=== PATIENT | female | born 1940 | race Caucasian/White ===

== ENCOUNTER 2016-04-14 10:14 | Emergency (ER) | payer OTHER ==
[~2016-04-14] VITALS: Ht 157.5 cm; Wt 90.2 kg
[~2016-04-14 10:14] MED LIST: ANTIVERT25 MG PO; ASPIRIN E.C.81 M1 PO; ASPIRIN325 MG PO; BAYER ADVANCED500 MG PO; BAYER CHEWABLE81 MG PO; CENTRUM COMPLE1 EACH PO; CENTRUM SILVER1 EAC3 PO; CIPRO500 MG PO; COLON HERBA1 CAPSULE PO; FAMOTIDINE20 MG PO; FIBER TABS625 MG PO; FIBERCON625 MG PO; FISH OIL 1,0001 EAC7 PO; FISH OIL OMEGA1 EACH PO; FLAGYL500 MG PO; FLAX OIL1000 MG PO; FLORASTOR250 MG PO; KEFLEX500 MG PO; LEVOTHROID,S0.075 MG PO; LEVOTHROID100 MCG PO; LISINOPRIL5 MG PO; Levothroid,Synthroid PO; MECLIZINE HCL25 MG PO; NAPROSYN500 MG PO; NAPROXEN500 MG PO; NEXIUM20 MG PO; NEXIUM40 MG PO; NOHOMEMEDS; NORVASC5 MG PO; PEPCID20 MG PO; PERCOCET 5/31 TABLET PO; PRAVACHOL40 MG PO; PRAVASTATIN SOD40 MG PO; PRINIVIL5 MG PO; SYNTHROID100 MCG PO; TAMIFLU75 MG PO; TIROSINT75 MCG PO; VANCOCIN HCL125 MG PO; WELCHOL625 MG PO; ZANTAC150 MG PO; ZINC30 MG PO
[2016-04-14 10:17] VITALS: BP 177/92
== END 2016-04-14 12:14 | disposition home or self-care (01) ==
LOC: EME 10:14
DX: N81.10 Cystocele, unspecified (principal); I10 Essential (primary) hypertension; E03.9 Hypothyroidism, unspecified; E78.5 Hyperlipidemia, unspecified
CPT/HCPCS: 99281; 99283

== ENCOUNTER 2016-10-01 17:34 | Emergency (ER) | payer OTHER ==
[~2016-10-01] VITALS: Ht 157.5 cm; Wt 91.7 kg
[2016-10-01] MEDS ORDERED: MOTRIN600 MG PO (20:32)
[2016-10-01] MEDS ORDERED: NORCO 5/3251 TABLET PO (20:32)
[2016-10-01 20:47] VITALS: BP 172/85
== END 2016-10-01 20:48 | disposition home or self-care (01) ==
LOC: EME 17:34
DX: S20.211A Contusion of right front wall of thorax, initial encounter (principal); W18.30XA Fall on same level, unspecified, initial encounter; Y92.480 Sidewalk as the place of occurrence of the external cause; E78.5 Hyperlipidemia, unspecified; I10 Essential (primary) hypertension; K21.9 Gastro-esophageal reflux disease without esophagitis; Z87.442 Personal history of urinary calculi; Z90.49 Acquired absence of other specified parts of digestive tract
CPT/HCPCS: 71020; 99281; 99284

== ENCOUNTER 2016-10-28 17:43 | Emergency (ER) | payer OTHER ==
[~2016-10-28] VITALS: Ht 157.5 cm; Wt 88.8 kg
[~2016-10-28 17:43] MED LIST changes: +MOTRIN600 MG PO; +NORCO 5/3251 TABLET PO
[2016-10-28 18:57] LABS: HEMATOCRIT 43.1 % (36.0-46.0); MCH 30.1 PG (29.0-34.0); MCHC 33.4 G/DL (30.0-36.0); MEAN PLAT.VOLUME 9.7 uM^3 (9.5-12.4); PLATELET COUNT 252 K/uL (156-360); RBC DIS.WIDTH-CV 13.7 % (11.8-14.6); RBC DIS.WIDTH-SD 45.4 % (39-53); RED BLOOD COUNT 4.79 M/uL (3.80-5.20); WHITE BLOOD COUNT 7.4 K/uL (4.1-10.2)
[2016-10-28 19:06] LABS: ADD MIUA? NO; BILIRUBIN NEGATIVE; BLOOD NEGATIVE; COLOR YELLOW ((YELLOW)); GLUCOSE (STRIP) NEGATIVE; KETONES NEGATIVE; LEUKOCYTES NEGATIVE; NITRITE NEGATIVE; PROTEIN (STRIP) NEGATIVE; SPECIFIC GRAVITY 1.014 (1.000-1.030); UCUL ADDED? NO; UROBILINOGEN 0.2 MG/DL (0.2-1.0)
[2016-10-28 19:07] LABS: CHLORIDE 102 mEq/L (99-109); POTASSIUM 4.2 mEq/L (3.7-5.4); SODIUM 134 mEq/L (136-147)
[2016-10-28 19:09] LABS: GLUCOSE 103 mg/dL (70-99)
[2016-10-28 19:11] LABS: ANION GAP 9 MEQ/L (2-14); TOTAL BILIRUBIN 0.7 mg/dL (0.0-1.0)
[2016-10-28 19:13] LABS: ALKALINE PHOSPHATASE 92 IU/L (3-129); GFR ESTIMATE (CALCULATED) > 59 mL/min/
[2016-10-28 19:14] LABS: UREA NITROGEN (BUN) 19 mg/dL (9-23)
[2016-10-28 19:16] LABS: LIPASE 9 U/L (1.0-51.0)
[2016-10-28 19:17] LABS: CREATINE KINASE 48 IU/L (1-294); TOTAL CK 48 IU/L (1-294)
[2016-10-28 19:20] LABS: TROP-I INTERPRETATION NEGATIVE; TROPONIN-I < 0.01 ng/mL (0.0-0.30)
[2016-10-28 19:22] LABS: CK-MB 0.7 ng/mL (0.0-4.9)
[2016-10-28] MEDS ORDERED: MAALOX MAXIMUM355 ML PO (21:09)
[2016-10-28] MEDS ORDERED: PRILOSEC OTC20 MG PO (21:09)
[2016-10-28] MEDS ORDERED: ZOFRAN ODT4 MG PO (21:10)
[2016-10-28 21:35] VITALS: BP 135/80
== END 2016-10-28 21:36 | disposition home or self-care (01) ==
LOC: EME 17:43
PROVIDERS: Emergency Medicine
DX: R10.13 Epigastric pain (principal); Z87.442 Personal history of urinary calculi; K21.9 Gastro-esophageal reflux disease without esophagitis; I10 Essential (primary) hypertension; E78.5 Hyperlipidemia, unspecified; E03.9 Hypothyroidism, unspecified; Z90.49 Acquired absence of other specified parts of digestive tract
CPT/HCPCS: 74177; 80053; 81003; 82550; 82553; 83690; 84484; 85027; 93005; 99281; 99285

== ENCOUNTER 2017-07-13 19:53 | Inpatient (IN) | payer OTHER ==
[~2017-07-13] VITALS: Ht 157.5 cm; Wt 89.3 kg
[~2017-07-13 19:53] MED LIST changes: -FISH OIL 1,0001 EAC7 PO; +LISINOPRIL10 MG PO; -LISINOPRIL5 MG PO; +MAALOX MAXIMUM355 ML PO; +MEGARED OMEGA-1 EAC1 PO; +PRILOSEC OTC20 MG PO; +ZOFRAN ODT4 MG PO
[2017-07-13 20:55] LABS: HEMATOCRIT 39.4 % (36.0-46.0); HEMOGLOBIN 13.6 G/DL (11.9-15.5); MCH 30.8 PG (29.0-34.0); MCHC 34.5 G/DL (30.0-36.0); MCV 89.1 FL (83-99); PLATELET COUNT 328 K/uL (156-360); RBC DIS.WIDTH-CV 12.8 % (11.8-14.6); RBC DIS.WIDTH-SD 42.5 % (39-53); RED BLOOD COUNT 4.42 M/uL (3.80-5.20); WHITE BLOOD COUNT 7.9 K/uL (4.1-10.2)
[2017-07-13 21:17] LABS: ALBUMIN 4.2 g/dL (3.2-4.8); CHLORIDE 100 mEq/L (99-109); POTASSIUM 4.5 mEq/L (3.7-5.4); SODIUM 139 mEq/L (136-147)
[2017-07-13 21:19] LABS: GLUCOSE 128 mg/dL (70-99)
[2017-07-13 21:20] LABS: TOTAL PROTEIN 8.5 g/dL (6.4-8.3)
[2017-07-13 21:21] LABS: TOTAL BILIRUBIN 0.3 mg/dL (0.0-1.0)
[2017-07-13 21:23] LABS: ALKALINE PHOSPHATASE 112 IU/L (3-129); CREATININE 0.8 mg/dL (0.6-1.3); GFR ESTIMATE (CALCULATED) > 59 mL/min/
[2017-07-13 21:24] LABS: UREA NITROGEN (BUN) 10 mg/dL (9-23)
[2017-07-13 21:25] LABS: AST (GOT) 28 IU/L (2-34)
[2017-07-13 21:26] LABS: ALT (GPT) 27 IU/L (3-49)
[2017-07-13 22:29] LABS: TROP-I INTERPRETATION NEGATIVE; TROPONIN-I < 0.01 ng/mL (0.0-0.30)
[2017-07-13 22:57] LABS: LIPASE 19 U/L (1.0-51.0)
[2017-07-13 23:05] LABS: APPEARANCE CLEAR ((CLEAR)); BILIRUBIN NEGATIVE; BLOOD NEGATIVE; COLOR STRAW ((YELLOW)); GLUCOSE (STRIP) NEGATIVE; KETONES NEGATIVE; LEUKOCYTES NEGATIVE; NITRITE NEGATIVE; PROTEIN (STRIP) 30; SPECIFIC GRAVITY 1.006 (1.000-1.030); UCUL ADDED? NO; UROBILINOGEN 0.2 MG/DL (0.2-1.0)
[2017-07-14] MEDS ORDERED: METFORMIN HCL500 M1 PO (00:38)
[2017-07-14 03:24] VITALS: BP 161/74
[2017-07-14 03:25] LABS: C-REACTIVE PROTEIN 21.4 MG/L (0-10)
[2017-07-14 06:38] LABS: HEMATOCRIT 35.8 % (36.0-46.0); HEMOGLOBIN 11.8 G/DL (11.9-15.5); MCV 91.1 FL (83-99); PLATELET COUNT 255 K/uL (156-360); RBC DIS.WIDTH-SD 43.5 % (39-53); RED BLOOD COUNT 3.93 M/uL (3.80-5.20); WHITE BLOOD COUNT 6.8 K/uL (4.1-10.2)
[2017-07-14 07:02] LABS: CHLORIDE 106 MEQ/L (99-109); CREATININE 0.6 MG/DL (0.6-1.3); GFR ESTIMATE (CALCULATED) > 59 mL/min/; GLUCOSE 127 mg/dL (70-99); POTASSIUM 4.5 MEQ/L (3.7-5.4); SODIUM 139 MEQ/L (136-147); UREA NITROGEN (BUN) 9 mg/dL (9-23)
[2017-07-14 07:27] VITALS: BP 132/64
[2017-07-14 12:19] VITALS: BP 153/66
[2017-07-14 16:48] VITALS: BP 135/74
[2017-07-14 17:33] LABS: C DIFF TOXIN NEGATIVE (NEGATIVE)
[2017-07-14 19:42] VITALS: BP 169/78
[2017-07-15 00:08] VITALS: BP 147/80
[2017-07-15 03:38] VITALS: BP 138/82
[2017-07-15 06:42] LABS: HEMOGLOBIN 11.7 G/DL (11.9-15.5); MCH 30.5 PG (29.0-34.0); MCHC 32.5 G/DL (30.0-36.0); MCV 93.8 FL (83-99); PLATELET COUNT 231 K/uL (156-360); RBC DIS.WIDTH-CV 13.3 % (11.8-14.6); RBC DIS.WIDTH-SD 45.6 % (39-53); RED BLOOD COUNT 3.84 M/uL (3.80-5.20); WHITE BLOOD COUNT 4.9 K/uL (4.1-10.2)
[2017-07-15 06:55] LABS: CHLORIDE 107 MEQ/L (99-109); CREATININE 0.7 MG/DL (0.6-1.3); GFR ESTIMATE (CALCULATED) > 59 mL/min/; GLUCOSE 114 mg/dL (70-99); POTASSIUM 4.7 MEQ/L (3.7-5.4); SODIUM 142 MEQ/L (136-147); UREA NITROGEN (BUN) 6 mg/dL (9-23)
[2017-07-15 08:02] VITALS: BP 176/90
[2017-07-15] MEDS ORDERED: CIPRO500 MG PO (08:11)
[2017-07-15] MEDS ORDERED: FLAGYL500 MG PO (08:11)
[2017-07-15 11:43] VITALS: BP 182/87
== END 2017-07-15 15:58 | disposition home or self-care (01) | DRG 392 ==
LOC: EME 19:53 → 2EASTP 07-14 01:56 → EDOF 07-14 01:56 → ENRESERV 07-14 02:09 → 2EASTP 07-14 03:17 → ENPENDDIS 07-15 16:00
PROVIDERS: Hospitalist
DX: K57.32 Diverticulitis of large intestine without perforation or abscess without bleeding (principal); I10 Essential (primary) hypertension; E11.9 Type 2 diabetes mellitus without complications; Z68.36 Body mass index [BMI] 36.0-36.9, adult; E66.9 Obesity, unspecified; E78.5 Hyperlipidemia, unspecified; E03.9 Hypothyroidism, unspecified; K21.9 Gastro-esophageal reflux disease without esophagitis; Z87.442 Personal history of urinary calculi; Z87.11 Personal history of peptic ulcer disease; Z82.49 Family history of ischemic heart disease and other diseases of the circulatory system
CPT/HCPCS: 74177; 80048; 80053; 81003; 82948; 83605; 83690; 84484; 85027; 86140; 87040; 87493; 93005; 99281; 99285; J0744; J1170; J1650; J3010; J7030; J7050; S0028; S0030

== ENCOUNTER 2017-08-26 00:37 | Emergency (ER) | payer OTHER ==
[~2017-08-26] VITALS: Ht 157.5 cm; Wt 88.1 kg
[~2017-08-26 00:37] MED LIST changes: +METFORMIN HCL500 M1 PO
[2017-08-26 01:21] LABS: APPEARANCE CLEAR ((CLEAR)); BILIRUBIN NEGATIVE; BLOOD MODERATE; COLOR YELLOW ((YELLOW)); GLUCOSE (STRIP) NEGATIVE; KETONES NEGATIVE; LEUKOCYTES NEGATIVE; NITRITE NEGATIVE; PROTEIN (STRIP) 30; SPECIFIC GRAVITY 1.014 (1.000-1.030); UROBILINOGEN 0.2 MG/DL (0.2-1.0)
[2017-08-26 01:26] LABS: BACTERIA NONE SEEN /HPF; EPITHELIAL CELLS RARE /HPF; MUCUS NONE SEEN /LPF; RED BLOOD CELLS 0-5 /HPF (0-5); UCUL ADDED? NO; WHITE BLOOD CELLS 0-5 /HPF (0-5)
[2017-08-26 02:54] LABS: BASOPHIL (%) 0.4 % (0-1); BASOPHIL COUNT 0.1 K/uL (0-0.1); EOSINOPHIL (%) 4.5 % (0-5); EOSINOPHIL COUNT 0.5 K/uL (0-0.3); HEMATOCRIT 37.7 % (36.0-46.0); HEMOGLOBIN 12.7 G/DL (11.9-15.5); IMMATURE GRANULOCYTE (%) 0.4 % (0.0-0.7); LYMPHOCYTE (%) 23.4 % (15-42); LYMPHOCYTE COUNT 2.6 K/uL (1.0-2.8); MCH 30.2 PG (29.0-34.0); MCHC 33.7 G/DL (30.0-36.0); MCV 89.8 FL (83-99); MONOCYTE (%) 9.1 % (3-12); NEUTROPHIL (%) 62.2 % (45-76); PLATELET COUNT 243 K/uL (156-360); RBC DIS.WIDTH-CV 13.6 % (11.8-14.6); RBC DIS.WIDTH-SD 44.8 % (39-53); WHITE BLOOD COUNT 11.3 K/uL (4.1-10.2)
[2017-08-26 03:01] LABS: CHLORIDE 104 mEq/L (99-109); POTASSIUM 4.3 mEq/L (3.7-5.4); SODIUM 140 mEq/L (136-147)
[2017-08-26 03:03] LABS: GLUCOSE 136 mg/dL (70-99)
[2017-08-26 03:07] LABS: CREATININE 0.7 mg/dL (0.6-1.3); GFR ESTIMATE (CALCULATED) > 59 mL/min/; UREA NITROGEN (BUN) 14 mg/dL (9-23)
[2017-08-26] MEDS ORDERED: AUGMENTIN875 MG PO (03:31)
[2017-08-26 04:25] VITALS: BP 178/89
== END 2017-08-26 04:26 | disposition home or self-care (01) ==
LOC: EME 00:37
PROVIDERS: Emergency Medicine
DX: K57.32 Diverticulitis of large intestine without perforation or abscess without bleeding (principal); R31.9 Hematuria, unspecified; K76.0 Fatty (change of) liver, not elsewhere classified; I10 Essential (primary) hypertension; E78.5 Hyperlipidemia, unspecified; E03.9 Hypothyroidism, unspecified; E11.9 Type 2 diabetes mellitus without complications; Z79.84 Long term (current) use of oral hypoglycemic drugs; Z87.442 Personal history of urinary calculi; Z90.49 Acquired absence of other specified parts of digestive tract
CPT/HCPCS: 74176; 80048; 81003; 85025; 99281; 99284; J1885

== ENCOUNTER 2017-09-22 22:51 | Emergency (ER) | payer OTHER ==
[~2017-09-22] VITALS: Ht 157.5 cm; Wt 87.4 kg
[~2017-09-22 22:51] MED LIST changes: +AUGMENTIN875 MG PO
[2017-09-22 23:13] LABS: HEMATOCRIT 38.8 % (36.0-46.0); HEMOGLOBIN 13.2 G/DL (11.9-15.5); MCH 30.8 PG (29.0-34.0); MCV 90.7 FL (83-99); PLATELET COUNT 260 K/uL (156-360); RBC DIS.WIDTH-CV 13.5 % (11.8-14.6); RBC DIS.WIDTH-SD 44.6 % (39-53); RED BLOOD COUNT 4.28 M/uL (3.80-5.20); WHITE BLOOD COUNT 9.1 K/uL (4.1-10.2)
[2017-09-22 23:28] LABS: CHLORIDE 106 mEq/L (99-109); POTASSIUM 4.3 mEq/L (3.7-5.4); SODIUM 144 mEq/L (136-147)
[2017-09-22 23:30] LABS: GLUCOSE 100 mg/dL (70-99)
[2017-09-22 23:34] LABS: CREATININE 0.9 mg/dL (0.6-1.3); GFR ESTIMATE (CALCULATED) > 59 mL/min/; TROP-I INTERPRETATION NEGATIVE; TROPONIN-I < 0.01 ng/mL (0.0-0.30)
[2017-09-22 23:35] LABS: UREA NITROGEN (BUN) 18 mg/dL (9-23)
[2017-09-23] MEDS ORDERED: TESSALON PERLE100 MG PO (01:09)
[2017-09-23] MEDS ORDERED: ZITHROMAX Z-PA250 MG PO (01:09)
[2017-09-23 01:27] VITALS: BP 202/99
== END 2017-09-23 01:30 | disposition home or self-care (01) ==
LOC: EME 22:51
DX: J06.9 Acute upper respiratory infection, unspecified (principal); I10 Essential (primary) hypertension; E78.5 Hyperlipidemia, unspecified; E03.9 Hypothyroidism, unspecified; E11.9 Type 2 diabetes mellitus without complications; Z79.84 Long term (current) use of oral hypoglycemic drugs
CPT/HCPCS: 71046; 80048; 84484; 85027; 93005; 99281; 99284